=== PATIENT | female | born 1995 | race Caucasian/White ===

== ENCOUNTER 2018-01-17 20:18 | Emergency (ER) | payer BC ==
[2018-01-17 20:35] VITALS: BP 138/88
--- NOTE | 2018-01-17 21:07 | UC ---
Head Injury HPI - HPI Summary HPI Summary: The patient is a 22-year-old female that bumped her forehead on a car door. She had a moderate headache. She did not lose consciousness. She took a 2 hour nap after this. Since then her friend said he she has not been acting herself. She has forgotten what she was saying during conversations. He has some mild photophobia. Her headache is mild at the current time. She has no nausea vomiting. Denies any neck pain. No past history of head injury. She states that she does feel like she is having a little trouble focusing. - History Of Current Complaint Chief Complaint: UCHeadInjury Stated Complaint: HEAD INJURY Time Seen by Provider: 01/17/18 20:58 Hx Obtained From: Patient Hx Last Menstrual Period: 01/09/18 Onset/Duration: Sudden Onset, Lasting Hours Severity Currently: Moderate Severity Initially: Mild Pain Intensity: 1 Pain Scale Used: 0-10 Numeric Character: Dull Aggravating Factor(s): Other - touch Associated Signs And Symptoms: Negative: LOC (Time In Secs./Mins/Hrs), LOC Duration Unknown, Confusion, Memory Loss, Epistaxis, Dental Malocclusion, Neck Pain, Nausea - Allergies/Home Medications Allergies/Adverse Reactions: Allergies Allergy/AdvReac Type Severity Reaction Status Date / Time No Known Allergies Allergy Verified 01/17/18 20:35 Home Medications: Home Medications NK [No Home Medications Reported] 01/17/18 [History Confirmed 01/17/18] PMH/Surg Hx/FS Hx/Imm Hx Previously Healthy: Yes - Surgical History Surgical History: None - Family History Known Family History: Positive: Hypertension - Social History Alcohol Use: Rare Substance Use Type: None Smoking Status (MU): Never Smoked Tobacco Review of Systems Constitutional: Negative Skin: Negative Eyes: Negative ENT: Negative Respiratory: Negative Cardiovascular: Negative Gastrointestinal: Negative Genitourinary: Negative Motor: Negative Neurovascular: Negative Musculoskeletal: Negative Neurological: Headache Psychological: Negative All Other Systems Reviewed And Are Negative: Yes Physical Exam Triage Information Reviewed: Yes Appearance: Well-Appearing, No Pain Distress, Well-Nourished Vital Signs: Initial Vital Signs Temp 98.5 F 01/17/18 20:28 Pulse 75 01/17/18 20:28 Resp 12 01/17/18 20:28 BP 138/88 01/17/18 20:28 Pulse Ox 100 01/17/18 20:28 Eyes: Positive: Conjunctiva Clear, Other: - perrl ENT: Positive: Hearing grossly normal. Negative: Trismus, Muffled voice, Hoarse voice Neck: Positive: Supple, Nontender Respiratory: Positive: Lungs clear, Normal breath sounds, No respiratory distress Cardiovascular: Positive: RRR, No Murmur Musculoskeletal: Positive: ROM Intact, No Edema Neurological: Positive: Alert, Muscle Tone Normal, Other: - non focal neuro exam /normal gait/normal mentation Psychological Exam: Normal Skin Exam: Normal Head Injury Course/Dx - Differential Dx/Diagnosis Provider Diagnoses: concussion without LOC Discharge - Sign-Out/Discharge Documenting (check all that apply): Patient Departure All imaging exams completed and their final reports reviewed: No Studies - Discharge Plan Condition: Stable Disposition: HOME Patient Education Materials: Concussion (ED) Referrals: No Primary Care Phys,NOPCP [Primary Care Provider] - Additional Instructions: mental and physical rest tylenol or advil recheck for new or worsening symptoms see you MD early next week if not completely better Don't drive this weekend - Billing Disposition and Condition Condition: STABLE Disposition: Home
== END 2018-01-17 21:15 | disposition home or self-care (01) ==
LOC: UCEAST 20:18
DX: S06.0X0A Concussion without loss of consciousness, initial encounter (principal); W22.8XXA Striking against or struck by other objects, initial encounter; Y93.9 Activity, unspecified; Y92.9 Unspecified place or not applicable
CPT/HCPCS: 99201; G0463